=== PATIENT | male | born 2000 | race Caucasian/White ===

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

== ENCOUNTER 2021-09-29 17:52 | Emergency (ER) | payer BC ==
[2021-09-29] MEDS ORDERED: GI Cocktail Oral Solution 30 ML PO ONE (18:07)
[2021-09-29] MEDS ORDERED: Sodium Chloride 0.9% 10 ML Syringe FLUSH PRN (18:08)
[2021-09-29 19:18] LABS: CHLORIDE,CL 101 mmol/L (98-107); SODIUM,NA 137 mmol/L (136-145)
== END 2021-09-29 20:19 | disposition home or self-care (01) ==
LOC: LL.ED 17:52
DX: R07.2 Precordial pain (principal); Z88.1 Allergy status to other antibiotic agents
CPT/HCPCS: 36415; 71046; 80053; 83605; 83690; 83735; 84484; 85025; 85379; 93005; 99285-25

== ENCOUNTER 2023-03-03 12:30 | Emergency (ER) | payer BC ==
[2023-03-03] MEDS: Bacitracin Oint 1 GM U/D Packet TOP ONE (13:14)
== END 2023-03-03 13:20 | disposition home or self-care (01) ==
LOC: LL.ED 12:30
DX: S61.432A Puncture wound without foreign body of left hand, initial encounter (principal); Z88.1 Allergy status to other antibiotic agents; Z87.891 Personal history of nicotine dependence; W26.0XXA Contact with knife, initial encounter
CPT/HCPCS: 99282